=== PATIENT | female | born 1940 | race Caucasian/White ===

== ENCOUNTER 2021-12-18 20:00 | Observation (INO) | payer MEDICARE, BC ==
[~2021-12-18 20:00] MED LIST: Iopamidol 370 76% 100 ML VIAL ONE
[2021-12-18] MEDS ORDERED: Aspirin Chewable 81 MG TAB ONE (20:36)
[2021-12-18 20:40] LABS: #Basophils 0.1 10x3/uL (0.0-0.2); #Eosinphils 0.4 10x3/uL (0.0-0.5); #Monocytes 0.6 10x3/uL (0.0-1.1); %Basophils 0.7 % (0.0-2.0); %Eosinophils 4.6 % (0.0-6.0); %Lymphocytes 13.8 % (18.0-47.0); %Monocytes 7.4 % (0.0-10.0); %Neutrophils 73.3 % (40.0-75.0); Hemoglobin 10.6 g/dL (12.0-15.5); Mean Corpuscular HGB CONC 30.6 g/dL (32.0-36.0); Mean Corpuscular Hemoglobin 27.9 pg (27.0-33.0); Mean Corpuscular Volume 91.1 fl (81.6-98.3); Mean Platelet Volume 8.5 fl (7.4-10.4); Platelet Count 189 10x3/uL (150-450); RBC Distribution Width 16.6 % (11.5-14.5); White Blood Cell (WBC) Count 8.2 10x3/uL (3.5-10.5)
[2021-12-18 20:51] LABS: ALT (SGPT) 7 U/L (8-55); AST (SGOT) 15 U/L (5-34); Albumin 3.2 g/dL (3.4-4.8); Alkaline Phosphatase 122 U/L (40-110); Anion Gap 15 mmol/L (10-20); BUN (Urea Nitrogen) 7 mg/dL (9.8-20.1); Bilirubin, Total 0.2 mg/dL (0.2-1.2); Calc. Creatinine Clearance 0 mL/min (70-130); Calcium 8.7 mg/dL (7.8-10.44); Carbon Dioxide 28 mmol/L (23-31); Chloride 98 mmol/L (98-107); Estimated GFR 89; Globulin 3.4 g/dL (2.4-3.5); Glucose 97 mg/dL (83-110); Potassium 4.3 mmol/L (3.5-5.1); Protein, Total 6.6 g/dL (5.8-8.1); Sodium 137 mmol/L (136-145)
[2021-12-18 21:20] LABS: Actual Bicarbonate (HCO3v) 27 mEq/L (22-28); Base Excess -0.2 mEq/L (-2.0 to +3.0); Calcium, Ionized (venous) 1.14 mmol/L (1.16-1.32); Chloride (VBG) 98 mmol/L (98-106); Critical Notified By: CP.PH; Hemoglobin (Hb) 11.1 g/dL (11.7-16.1); Potassium (VBG) 3.97 mmol/L (3.70-5.30); Puncture Site Other Site; Sodium 131.2 mmol/L (133-146); pH (venous) 7.31 (7.32-7.43)
[2021-12-18 21:29] LABS: SARS-CoV-2 NAA Rapid Test Not Detected (NotDetected)
[2021-12-18] MEDS ORDERED: Acetaminophen 325 MG TAB PO PRN (23:38)
[2021-12-18] MEDS ORDERED: Calcium Carbonate 500 MG ChewTAB PO PRN (23:38)
[2021-12-18] MEDS ORDERED: Senokot S 8.6-50 MG TAB PO PRN (23:38)
[2021-12-18] MEDS ORDERED: Guaifenesin DM 100-10/5 ML UDCUP PO PRN (23:38)
[2021-12-18] MEDS ORDERED: Ondansetron PF 4 MG/2 ML Vial IVP PRN (23:38)
[2021-12-19 01:34] VITALS: BMI 23.2
[2021-12-19] MEDS ORDERED: HYDROcodone/Acetaminophen 5/325 mg Tablet PO PRN (02:19)
[2021-12-19] MEDS ORDERED: Carvedilol 12.5 MG TAB PO SCH (08:00)
[2021-12-19 08:13] VITALS: BP 126/59; TEMP 97.1
[2021-12-19] MEDS ORDERED: Amlodipine 5 MG TAB PO SCH (09:00)
[2021-12-19] MEDS ORDERED: Losartan Potassium 50 MG TAB PO SCH (09:00)
[2021-12-19] MEDS ORDERED: Enoxaparin Sodium 40 MG/0.4 ML SYRINGE SC SCH (09:00)
== END 2021-12-19 11:29 | disposition home or self-care (01) ==
LOC: CSHERS 20:00 → CSHTELE 23:38 → UNDOADMOB 12-19 00:45
PROVIDERS: ADMIT Student in an Organized Health Care Education/Training Program; ATTEND Internal Medicine
DX: R06.09 Other forms of dyspnea (principal); I10 Essential (primary) hypertension; E78.5 Hyperlipidemia, unspecified; R09.02 Hypoxemia; D64.9 Anemia, unspecified; K21.9 Gastro-esophageal reflux disease without esophagitis; Z20.822 Contact with and (suspected) exposure to COVID-19; Z79.899 Other long term (current) drug therapy; Z95.2 Presence of prosthetic heart valve
CPT/HCPCS: 0241U; 71045; 71275; 80053; 82805; 83605; 83880; 84484 ×3; 85025; 85379; 93005; 93306; 93971; 94760; 36415; 96372; G0378; J1650; Q9967

== ENCOUNTER 2022-08-05 17:59 | Inpatient (IN) | payer MEDICARE, BC ==
[2022-08-05 18:57] LABS: #Monocytes 0.7 10x3/uL (0.0-1.1); #Neutrophils 12.4 10x3/uL (1.5-8.4); %Basophils 0.3 % (0.0-2.0); %Eosinophils 0.1 % (0.0-6.0); %Lymphocytes 7.3 % (18.0-47.0); %Monocytes 4.6 % (0.0-10.0); %Neutrophils 87.1 % (40.0-75.0); Hemoglobin 11.5 g/dL (12.0-15.5); Mean Corpuscular HGB CONC 30.4 g/dL (32.0-36.0); Mean Corpuscular Hemoglobin 27.4 pg (27.0-33.0); Mean Corpuscular Volume 90.2 fl (81.6-98.3); Mean Platelet Volume 9.5 fl (7.4-10.4); Platelet Count 181 10x3/uL (150-450); RBC Distribution Width 15.3 % (11.5-14.5); Red Blood Cell (RBC) Count 4.19 10x6/uL (3.90-5.03); White Blood Cell (WBC) Count 14.2 10x3/uL (3.5-10.5)
[2022-08-05 19:12] LABS: ALT (SGPT) 10 U/L (8-55); AST (SGOT) 14 U/L (5-34); Alkaline Phosphatase 72 U/L (40-110); Anion Gap 20 mmol/L (10-20); BUN (Urea Nitrogen) 36 mg/dL (9.8-20.1); Bilirubin, Total 0.3 mg/dL (0.2-1.2); Calc. Creatinine Clearance 0 mL/min (70-130); Calcium 8.8 mg/dL (7.8-10.44); Carbon Dioxide 21 mmol/L (23-31); Chloride 96 mmol/L (98-107); Estimated GFR 37; Globulin 3.1 g/dL (2.4-3.5); Glucose 91 mg/dL (83-110); Potassium 4.9 mmol/L (3.5-5.1); Protein, Total 7.1 g/dL (5.8-8.1); Sodium 132 mmol/L (136-145)
[2022-08-05] MEDS ORDERED: Dexamethasone 10 MG/ML VIAL ONE (19:18)
[2022-08-05] MEDS ORDERED: Albuterol 2.5 MG/0.5 ML NEB ONE (19:19)
[2022-08-05] MEDS ORDERED: Ipratropium Bromide 2.5 ml Neb ONE (19:19)
[2022-08-05 19:34] LABS: SARS-CoV-2 NAA Rapid Test Not Detected (NotDetected)
[2022-08-05 21:18] LABS: Bilirubin Neg (Negative); Blood, Urine 10 (Negative); Clarity Clear (Clear); Glucose, Urine (Dipstick) Normal (Negative); Ketone, Urine 5 mg/dL (Negative); Leukocyte 100 (Negative); Nitrite Positive (Negative); Protein, Urine (Dipstick) 15 mg/dl (Neg-Trace); Specific Gravity, Urine 1.015 (1.005-1.030); Urobilinogen Normal mg/dL (Less than 2)
[2022-08-05] MEDS ORDERED: Guaifenesin DM 100-10/5 ML UDCUP PO PRN (21:23)
[2022-08-05] MEDS ORDERED: Senokot S 8.6-50 MG TAB PO PRN (21:23)
[2022-08-05] MEDS ORDERED: Calcium Carbonate 500 MG ChewTAB PO PRN (21:23)
[2022-08-05] MEDS ORDERED: Ondansetron PF 4 MG/2 ML Vial IVP PRN (21:23)
[2022-08-05 21:41] LABS: RBC/HPF 0-3 HPF (0-3)
[2022-08-05 21:42] LABS: Bacteria/HPF 4+ HPF (None Seen); Squamous Epithelial 0-3 HPF (0-3)
[2022-08-05] MEDS ORDERED: Cefdinir 300 MG CAP PO SCH (22:45)
[2022-08-05] MEDS ORDERED: Furosemide 40 MG/4 ML VIAL ONE (22:48)
[2022-08-05] MEDS ORDERED: HYDROcodone/Acetaminophen 5/325 mg Tablet ONE (22:49)
[2022-08-05] MEDS ORDERED: Furosemide 20 MG/2 ML VIAL SLOW IVP SCH (23:59)
[2022-08-06] MEDS: HYDROcodone/Acetaminophen 5/325 mg Tablet PO PRN ×2 (03:34→10:49)
[2022-08-06] MEDS ORDERED: HYDROcodone/Acetaminophen 5/325 mg Tablet ONE (03:35)
[2022-08-06 04:08] LABS: Anion Gap 17 mmol/L (10-20); BUN (Urea Nitrogen) 34 mg/dL (9.8-20.1); Calc. Creatinine Clearance 0 mL/min (70-130); Calcium 8.6 mg/dL (7.8-10.44); Carbon Dioxide 26 mmol/L (23-31); Chloride 95 mmol/L (98-107); Estimated GFR 54; Glucose 126 mg/dL (83-110); Potassium 4.7 mmol/L (3.5-5.1); Sodium 133 mmol/L (136-145)
[2022-08-06 04:11] LABS: Actual Bicarbonate (HCO3v) 25 mEq/L (22-28); Base Excess -0.8 mEq/L (-2 - +2); Calcium, Ionized (venous) 1.12 mmol/L (1.16-1.32); Chloride (VBG) 94 mmol/L (98-106); Hemoglobin (Hb) 12.6 g/dL (11.7-16.1); Potassium (VBG) 4.71 mmol/L (3.70-5.30); Puncture Site Other Site; Sodium 128.6 mmol/L (133-146); pH (venous) 7.34 (7.32-7.43)
[2022-08-06] MEDS: Cefdinir 300 MG CAP PO SCH ×2 (09:27→20:23)
[2022-08-06] MEDS: Carvedilol 25 MG TAB PO SCH ×2 (09:27→17:08)
[2022-08-06] MEDS: Gabapentin 300 MG CAP PO SCH ×2 (09:28→20:26)
[2022-08-06] MEDS: Furosemide 20 MG TAB PO SCH (09:28)
[2022-08-06] MEDS: Losartan 25 MG TAB PO SCH (09:28)
[2022-08-06 10:01] LABS: Legionella Urinary Ag Negative (Negative); Strep pneumo Urine Ag NEGATIVE (NEGATIVE)
[2022-08-06] MEDS: HYDROcodone/Acetaminophen 10/325 mg Tablet PO PRN ×2 (11:52→16:00)
[2022-08-06] MEDS ORDERED: Amiodarone 450 MG in Dextrose 5% in Water 250 ML IVPB SCH (12:00)
[2022-08-06] MEDS ORDERED: Amiodarone In Dextrose 200 ML IVPB SCH ×2 (12:00→20:15)
[2022-08-06] MEDS ORDERED: Apixaban 2.5 MG TAB PO SCH (12:15)
[2022-08-06] MEDS ORDERED: Amiodarone In Dextrose 150 MG in Premix Bag 1 BAG IVPB SCH (12:15)
[2022-08-06] MEDS: Amiodarone 200 MG TAB PO SCH (20:25)
[2022-08-06] MEDS: Mirtazapine 15 MG TAB PO SCH (20:25)
[2022-08-06] MEDS: Apixaban 2.5 MG TAB PO SCH (20:27)
[2022-08-06] MEDS: Acetaminophen 325 MG TAB PO PRN (21:52)
[2022-08-07] MEDS: HYDROcodone/Acetaminophen 10/325 mg Tablet PO PRN ×2 (00:09→20:07)
[2022-08-07 05:27] LABS: #Monocytes 0.9 10x3/uL (0.0-1.1); #Neutrophils 14.3 10x3/uL (1.5-8.4); %Basophils 0.1 % (0.0-2.0); %Lymphocytes 3.8 % (18.0-47.0); %Monocytes 5.5 % (0.0-10.0); %Neutrophils 89.8 % (40.0-75.0); Hemoglobin 11.8 g/dL (12.0-15.5); Mean Corpuscular HGB CONC 31.4 g/dL (32.0-36.0); Mean Corpuscular Hemoglobin 27.4 pg (27.0-33.0); Mean Corpuscular Volume 87.2 fl (81.6-98.3); Mean Platelet Volume 8.9 fl (7.4-10.4); Platelet Count 213 10x3/uL (150-450); RBC Distribution Width 15.3 % (11.5-14.5); Red Blood Cell (RBC) Count 4.31 10x6/uL (3.90-5.03)
[2022-08-07] MEDS ORDERED: Lorazepam 2 MG/ML VIAL SLOW IVP SCH (05:30)
[2022-08-07 05:37] LABS: Anion Gap 15 mmol/L (10-20); BUN (Urea Nitrogen) 35 mg/dL (9.8-20.1); Calc. Creatinine Clearance 38 mL/min (70-130); Carbon Dioxide 28 mmol/L (23-31); Chloride 94 mmol/L (98-107); Estimated GFR 62; Glucose 112 mg/dL (83-110); Potassium 4.8 mmol/L (3.5-5.1); Sodium 132 mmol/L (136-145)
[2022-08-07] MEDS: Gabapentin 300 MG CAP PO SCH ×2 (09:29→20:05)
[2022-08-07] MEDS: Furosemide 20 MG TAB PO SCH (09:29)
[2022-08-07] MEDS: Cefdinir 300 MG CAP PO SCH ×2 (09:30→20:06)
[2022-08-07] MEDS: Amiodarone 200 MG TAB PO SCH ×2 (09:30→20:06)
[2022-08-07] MEDS: Apixaban 2.5 MG TAB PO SCH ×2 (09:30→20:07)
[2022-08-07] MEDS: Losartan 25 MG TAB PO SCH (09:30)
[2022-08-07] MEDS: Carvedilol 25 MG TAB PO SCH ×2 (09:30→17:04)
[2022-08-07] MEDS ORDERED: guaiFENesin ER 600 MG TAB PO SCH (12:45)
[2022-08-07] MEDS: Lorazepam 0.5 MG TAB PO PRN ×2 (13:00→20:05)
[2022-08-07] MEDS: guaiFENesin ER 600 MG TAB PO SCH (20:05)
[2022-08-07] MEDS: Mirtazapine 15 MG TAB PO SCH (20:07)
[2022-08-08] MEDS: Lorazepam 0.5 MG TAB PO PRN ×3 (03:43→20:57)
[2022-08-08] MEDS: HYDROcodone/Acetaminophen 10/325 mg Tablet PO PRN ×3 (04:21→20:56)
[2022-08-08 06:03] LABS: #Monocytes 0.8 10x3/uL (0.0-1.1); #Neutrophils 8.1 10x3/uL (1.5-8.4); %Basophils 0.1 % (0.0-2.0); %Lymphocytes 9.6 % (18.0-47.0); %Monocytes 7.9 % (0.0-10.0); %Neutrophils 81.5 % (40.0-75.0); Hemoglobin 11.6 g/dL (12.0-15.5); Mean Corpuscular Hemoglobin 27.4 pg (27.0-33.0); Mean Corpuscular Volume 88.4 fl (81.6-98.3); Mean Platelet Volume 9.1 fl (7.4-10.4); Platelet Count 217 10x3/uL (150-450); RBC Distribution Width 15.5 % (11.5-14.5); Red Blood Cell (RBC) Count 4.23 10x6/uL (3.90-5.03)
[2022-08-08 06:42] LABS: Anion Gap 12 mmol/L (10-20); BUN (Urea Nitrogen) 31 mg/dL (9.8-20.1); Calc. Creatinine Clearance 46 mL/min (70-130); Calcium 8.5 mg/dL (7.8-10.44); Carbon Dioxide 29 mmol/L (23-31); Chloride 98 mmol/L (98-107); Estimated GFR 78; Glucose 103 mg/dL (83-110); Potassium 3.9 mmol/L (3.5-5.1); Sodium 135 mmol/L (136-145)
[2022-08-08 08:14] LABS: Magnesium 1.6 mg/dL (1.6-2.6)
[2022-08-08 08:46] LABS: Free T4 (Free Thyroxine) 0.86 ng/dL (0.70-1.48); Thyroid Stimulating Hormone 1.051 uIU/mL (0.35-4.94)
[2022-08-08] MEDS: Carvedilol 25 MG TAB PO SCH ×2 (09:39→16:38)
[2022-08-08] MEDS: Amiodarone 200 MG TAB PO SCH ×2 (09:40→20:57)
[2022-08-08] MEDS: Apixaban 2.5 MG TAB PO SCH ×2 (09:41→20:56)
[2022-08-08] MEDS: Furosemide 20 MG TAB PO SCH (09:41)
[2022-08-08] MEDS: Losartan 25 MG TAB PO SCH (09:42)
[2022-08-08] MEDS: guaiFENesin ER 600 MG TAB PO SCH ×2 (09:43→20:58)
[2022-08-08] MEDS: Cefdinir 300 MG CAP PO SCH ×2 (09:43→20:58)
[2022-08-08] MEDS: Gabapentin 300 MG CAP PO SCH ×2 (09:43→20:57)
[2022-08-08] MEDS: Loperamide HCl 2 MG CAP PO PRN ×2 (15:26→20:58)
[2022-08-08 18:26] LABS: Magnesium 1.5 mg/dL (1.6-2.6)
[2022-08-08] MEDS: Mirtazapine 15 MG TAB PO SCH (20:57)
[2022-08-09] MEDS: Lorazepam 0.5 MG TAB PO PRN ×3 (03:08→18:46)
[2022-08-09] MEDS: HYDROcodone/Acetaminophen 10/325 mg Tablet PO PRN ×3 (03:09→20:38)
[2022-08-09 06:12] LABS: ALT (SGPT) Less than 6 U/L (8-55); AST (SGOT) 7 U/L (5-34); Albumin 2.8 g/dL (3.4-4.8); Alkaline Phosphatase 44 U/L (40-110); Anion Gap 14 mmol/L (10-20); BUN (Urea Nitrogen) 27 mg/dL (9.8-20.1); Bilirubin, Total 0.3 mg/dL (0.2-1.2); Calc. Creatinine Clearance 51 mL/min (70-130); Calcium 8.3 mg/dL (7.8-10.44); Carbon Dioxide 28 mmol/L (23-31); Chloride 101 mmol/L (98-107); Estimated GFR 86; Globulin 2.6 g/dL (2.4-3.5); Glucose 93 mg/dL (83-110); Potassium 3.8 mmol/L (3.5-5.1); Protein, Total 5.4 g/dL (5.8-8.1); Sodium 139 mmol/L (136-145)
[2022-08-09 06:22] LABS: #Monocytes 1.1 10x3/uL (0.0-1.1); #Neutrophils 8.2 10x3/uL (1.5-8.4); %Basophils 0.2 % (0.0-2.0); %Eosinophils 0.2 % (0.0-6.0); %Lymphocytes 11.6 % (18.0-47.0); %Monocytes 10.1 % (0.0-10.0); %Neutrophils 77.2 % (40.0-75.0); Hemoglobin 11.2 g/dL (12.0-15.5); Mean Corpuscular HGB CONC 30.3 g/dL (32.0-36.0); Mean Corpuscular Hemoglobin 27.3 pg (27.0-33.0); Mean Corpuscular Volume 90.2 fl (81.6-98.3); Mean Platelet Volume 8.8 fl (7.4-10.4); Platelet Count 186 10x3/uL (150-450); RBC Distribution Width 15.2 % (11.5-14.5); White Blood Cell (WBC) Count 10.6 10x3/uL (3.5-10.5)
[2022-08-09] MEDS: Acetaminophen 325 MG TAB PO PRN (06:53)
[2022-08-09] MEDS: Losartan 25 MG TAB PO SCH (09:28)
[2022-08-09] MEDS: Cefdinir 300 MG CAP PO SCH ×2 (09:28→20:36)
[2022-08-09] MEDS: Apixaban 2.5 MG TAB PO SCH ×2 (09:28→20:35)
[2022-08-09] MEDS: Carvedilol 25 MG TAB PO SCH ×2 (09:28→16:55)
[2022-08-09] MEDS: Furosemide 20 MG TAB PO SCH (09:28)
[2022-08-09] MEDS: Amiodarone 200 MG TAB PO SCH ×2 (09:29→20:35)
[2022-08-09] MEDS: guaiFENesin ER 600 MG TAB PO SCH ×2 (09:29→20:36)
[2022-08-09] MEDS: Gabapentin 300 MG CAP PO SCH ×2 (09:29→20:32)
[2022-08-09] MEDS: Mirtazapine 15 MG TAB PO SCH (20:35)
[2022-08-10] MEDS: Lorazepam 0.5 MG TAB PO PRN ×2 (04:49→19:58)
[2022-08-10 05:44] LABS: #Neutrophils 10.9 10x3/uL (1.5-8.4); %Basophils 0.2 % (0.0-2.0); %Eosinophils 0.3 % (0.0-6.0); %Lymphocytes 9.5 % (18.0-47.0); %Monocytes 7.1 % (0.0-10.0); %Neutrophils 82.2 % (40.0-75.0); Hemoglobin 11.5 g/dL (12.0-15.5); Mean Corpuscular HGB CONC 30.5 g/dL (32.0-36.0); Mean Corpuscular Hemoglobin 27.5 pg (27.0-33.0); Mean Corpuscular Volume 90.2 fl (81.6-98.3); Mean Platelet Volume 8.7 fl (7.4-10.4); Platelet Count 177 10x3/uL (150-450); RBC Distribution Width 15.3 % (11.5-14.5); Red Blood Cell (RBC) Count 4.18 10x6/uL (3.90-5.03); White Blood Cell (WBC) Count 13.3 10x3/uL (3.5-10.5)
[2022-08-10 06:03] LABS: ALT (SGPT) Less than 6 U/L (8-55); AST (SGOT) 6 U/L (5-34); Albumin 2.9 g/dL (3.4-4.8); Alkaline Phosphatase 47 U/L (40-110); Anion Gap 13 mmol/L (10-20); BUN (Urea Nitrogen) 25 mg/dL (9.8-20.1); Bilirubin, Total 0.3 mg/dL (0.2-1.2); Calc. Creatinine Clearance 47 mL/min (70-130); Calcium 8.6 mg/dL (7.8-10.44); Carbon Dioxide 30 mmol/L (23-31); Chloride 99 mmol/L (98-107); Estimated GFR 82; Globulin 2.8 g/dL (2.4-3.5); Glucose 96 mg/dL (83-110); Potassium 3.9 mmol/L (3.5-5.1); Protein, Total 5.7 g/dL (5.8-8.1); Sodium 138 mmol/L (136-145)
[2022-08-10] MEDS: Losartan 25 MG TAB PO SCH (08:51)
[2022-08-10] MEDS: Amiodarone 200 MG TAB PO SCH ×2 (08:52→19:57)
[2022-08-10] MEDS: HYDROcodone/Acetaminophen 10/325 mg Tablet PO PRN ×2 (08:52→16:50)
[2022-08-10] MEDS: Gabapentin 300 MG CAP PO SCH ×2 (08:53→19:57)
[2022-08-10] MEDS: Cefdinir 300 MG CAP PO SCH ×2 (08:54→19:57)
[2022-08-10] MEDS: Furosemide 20 MG TAB PO SCH (08:54)
[2022-08-10] MEDS: Amlodipine 5 MG TAB PO SCH (08:55)
[2022-08-10] MEDS: guaiFENesin ER 600 MG TAB PO SCH ×2 (08:55→19:58)
[2022-08-10] MEDS: Apixaban 2.5 MG TAB PO SCH ×2 (08:55→19:57)
[2022-08-10] MEDS: Carvedilol 25 MG TAB PO SCH ×2 (08:55→16:51)
[2022-08-10] MEDS: Magnesium Oxide 400 MG TAB PO SCH (11:20)
[2022-08-10] MEDS: Mirtazapine 15 MG TAB PO SCH (19:58)
[2022-08-11] MEDS: HYDROcodone/Acetaminophen 10/325 mg Tablet PO PRN ×2 (00:11→09:20)
[2022-08-11 04:16] LABS: #Eosinphils 0.1 10x3/uL (0.0-0.5); #Neutrophils 12.6 10x3/uL (1.5-8.4); %Basophils 0.3 % (0.0-2.0); %Eosinophils 0.6 % (0.0-6.0); %Lymphocytes 8.5 % (18.0-47.0); %Monocytes 6.3 % (0.0-10.0); %Neutrophils 83.4 % (40.0-75.0); Hemoglobin 12.1 g/dL (12.0-15.5); Mean Corpuscular HGB CONC 29.8 g/dL (32.0-36.0); Mean Corpuscular Hemoglobin 27.4 pg (27.0-33.0); Mean Corpuscular Volume 91.9 fl (81.6-98.3); Mean Platelet Volume 8.7 fl (7.4-10.4); Platelet Count 173 10x3/uL (150-450); RBC Distribution Width 15.2 % (11.5-14.5); Red Blood Cell (RBC) Count 4.42 10x6/uL (3.90-5.03); White Blood Cell (WBC) Count 15.1 10x3/uL (3.5-10.5)
[2022-08-11 04:25] LABS: ALT (SGPT) 8 U/L (8-55); AST (SGOT) 9 U/L (5-34); Albumin 3.1 g/dL (3.4-4.8); Alkaline Phosphatase 61 U/L (40-110); Anion Gap 13 mmol/L (10-20); BUN (Urea Nitrogen) 28 mg/dL (9.8-20.1); Bilirubin, Total 0.3 mg/dL (0.2-1.2); Calc. Creatinine Clearance 46 mL/min (70-130); Calcium 8.7 mg/dL (7.8-10.44); Carbon Dioxide 32 mmol/L (23-31); Chloride 100 mmol/L (98-107); Estimated GFR 79; Globulin 2.8 g/dL (2.4-3.5); Glucose 102 mg/dL (83-110); Potassium 4.1 mmol/L (3.5-5.1); Protein, Total 5.9 g/dL (5.8-8.1); Sodium 141 mmol/L (136-145)
[2022-08-11] MEDS: Lorazepam 0.5 MG TAB PO PRN ×2 (04:54→20:36)
[2022-08-11 05:03] VITALS: BMI 22.7
[2022-08-11] MEDS: Gabapentin 300 MG CAP PO SCH ×2 (09:17→20:34)
[2022-08-11] MEDS: Carvedilol 25 MG TAB PO SCH ×2 (09:17→18:31)
[2022-08-11] MEDS: Cefdinir 300 MG CAP PO SCH (09:18)
[2022-08-11] MEDS: Losartan 25 MG TAB PO SCH (09:18)
[2022-08-11] MEDS: Amiodarone 200 MG TAB PO SCH ×2 (09:19→20:35)
[2022-08-11] MEDS: Amlodipine 5 MG TAB PO SCH (09:19)
[2022-08-11] MEDS: guaiFENesin ER 600 MG TAB PO SCH ×2 (09:19→20:35)
[2022-08-11] MEDS: Apixaban 2.5 MG TAB PO SCH ×2 (09:19→20:36)
[2022-08-11] MEDS: Furosemide 20 MG TAB PO SCH (09:21)
[2022-08-11] MEDS: Magnesium Oxide 400 MG TAB PO SCH (09:22)
[2022-08-11] MEDS: cefTRIAXone\\ROCEPHIN 2 GM in Sodium Chloride 0.9% 100 ML IVPB SCH (10:01)
[2022-08-11 13:34] LABS: SARS-CoV-2 NAA Rapid Test Not Detected (NotDetected)
[2022-08-11] MEDS: Mirtazapine 15 MG TAB PO SCH (20:35)
[2022-08-12] MEDS: HYDROcodone/Acetaminophen 10/325 mg Tablet PO PRN ×2 (03:56→13:19)
[2022-08-12 04:20] LABS: #Basophils 0.1 10x3/uL (0.0-0.2); #Eosinphils 0.1 10x3/uL (0.0-0.5); #Monocytes 0.8 10x3/uL (0.0-1.1); #Neutrophils 12.1 10x3/uL (1.5-8.4); %Basophils 0.4 % (0.0-2.0); %Eosinophils 0.7 % (0.0-6.0); %Lymphocytes 8.9 % (18.0-47.0); %Monocytes 5.8 % (0.0-10.0); %Neutrophils 83.4 % (40.0-75.0); Hemoglobin 11.6 g/dL (12.0-15.5); Mean Corpuscular HGB CONC 30.4 g/dL (32.0-36.0); Mean Corpuscular Hemoglobin 27.6 pg (27.0-33.0); Mean Corpuscular Volume 90.5 fl (81.6-98.3); Mean Platelet Volume 8.5 fl (7.4-10.4); Platelet Count 174 10x3/uL (150-450); RBC Distribution Width 15.2 % (11.5-14.5); Red Blood Cell (RBC) Count 4.21 10x6/uL (3.90-5.03); White Blood Cell (WBC) Count 14.5 10x3/uL (3.5-10.5)
[2022-08-12 04:32] LABS: ALT (SGPT) Less than 6 U/L (8-55); AST (SGOT) 10 U/L (5-34); Alkaline Phosphatase 47 U/L (40-110); Anion Gap 14 mmol/L (10-20); BUN (Urea Nitrogen) 19 mg/dL (9.8-20.1); Bilirubin, Total 0.3 mg/dL (0.2-1.2); Calc. Creatinine Clearance 53 mL/min (70-130); Calcium 8.6 mg/dL (7.8-10.44); Carbon Dioxide 31 mmol/L (23-31); Chloride 101 mmol/L (98-107); Estimated GFR 87; Globulin 2.7 g/dL (2.4-3.5); Glucose 87 mg/dL (83-110); Potassium 3.7 mmol/L (3.5-5.1); Protein, Total 5.7 g/dL (5.8-8.1); Sodium 142 mmol/L (136-145)
[2022-08-12] MEDS ORDERED: Valsartan 80 MG TAB PO SCH (09:00)
[2022-08-12] MEDS ORDERED: Amiodarone 200 MG TAB PO SCH (09:00)
[2022-08-12] MEDS ORDERED: Loperamide HCl 2 MG CAP PO PRN (10:16)
[2022-08-12] MEDS: cefTRIAXone\\ROCEPHIN 2 GM in Sodium Chloride 0.9% 100 ML IVPB SCH (10:32)
[2022-08-12] MEDS: Amlodipine 5 MG TAB PO SCH (10:34)
[2022-08-12] MEDS: Gabapentin 300 MG CAP PO SCH (10:35)
[2022-08-12] MEDS: guaiFENesin ER 600 MG TAB PO SCH (10:38)
[2022-08-12] MEDS: Magnesium Oxide 400 MG TAB PO SCH (10:38)
[2022-08-12] MEDS: Carvedilol 25 MG TAB PO SCH (10:39)
[2022-08-12] MEDS: Furosemide 20 MG TAB PO SCH (10:39)
[2022-08-12] MEDS: Apixaban 2.5 MG TAB PO SCH (10:40)
[2022-08-12 13:29] VITALS: BP 126/59; TEMP 97.6
== END 2022-08-12 14:55 | DRG 291 ==
LOC: CSHERS 17:59 → INTOOBSV 23:45 → CSHERHOLD 23:45 → CSHTELE 08-06 08:20 → OBSVTOIN 08-08 17:28
PROVIDERS: ADMIT Student in an Organized Health Care Education/Training Program; ATTEND Internal Medicine
DX: I11.0 Hypertensive heart disease with heart failure (principal); I50.33 Acute on chronic diastolic (congestive) heart failure; Q25.72 Congenital pulmonary arteriovenous malformation; N39.0 Urinary tract infection, site not specified; E87.1 Hypo-osmolality and hyponatremia; N17.9 Acute kidney failure, unspecified; G89.29 Other chronic pain; K21.9 Gastro-esophageal reflux disease without esophagitis; Z96.643 Presence of artificial hip joint, bilateral; R06.03 Acute respiratory distress; I48.91 Unspecified atrial fibrillation; R09.02 Hypoxemia; F32.A Depression, unspecified; D72.829 Elevated white blood cell count, unspecified; Z20.822 Contact with and (suspected) exposure to COVID-19; I27.20 Pulmonary hypertension, unspecified; R53.1 Weakness; Z98.890 Other specified postprocedural states; Z95.2 Presence of prosthetic heart valve; Z79.899 Other long term (current) drug therapy
CPT/HCPCS: 36415; 71045; 71046; 80048; 80053; 81003; 81015; 82805; 83605; 83735; 83880; 84439; 84443; 84481; 84484; 85025; 87040; 87077; 87086; 87186; 87324; 87449; 87811; 87899; 93005; 93010; 93306; 94640; 94667; 94668; 94760; 94762; 96372; 96374; 96375; 96376; G0378; J0283; J0696; J1100; J1650; J1940; J2060; J3490; J7611; U0002